=== PATIENT | female | born 1935 | race Caucasian/White ===

== ENCOUNTER 2017-01-09 05:04 | Inpatient (IN) | payer OTHER, MEDICARE ==
[~2017-01-09] VITALS: Ht 160 cm; Wt 75.4 kg
[~2017-01-09 05:04] MED LIST: ASPIRIN325 MG PO; ASPIRIN81 M2 PO; COUMADIN5 MG PO; LIPITOR20 MG PO; LOVENOX80 MG/0.8 SC; Monopril PO; NITROSTAT0.4 MG SL
[2017-01-09 05:46] LABS: CARBON DIOXIDE (BICARBONATE) 26.9 MEQ/L (20-31)
[2017-01-09 05:49] LABS: HEMATOCRIT 40.5 % (36.0-46.0); MCH 27.9 PG (29.0-34.0); MCHC 33.1 G/DL (30.0-36.0); MEAN PLAT.VOLUME 11.8 uM^3 (9.5-12.4); PLATELET COUNT 124 K/uL (156-360); RBC DIS.WIDTH-CV 13.6 % (11.8-14.6); RBC DIS.WIDTH-SD 42.3 % (39-53); WHITE BLOOD COUNT 13.5 K/uL (4.1-10.2)
[2017-01-09 05:57] LABS: CHLORIDE 102 mEq/L (99-109); MCV 84.4 FL (83-99); POTASSIUM 3.2 mEq/L (3.7-5.4); SODIUM 135 mEq/L (136-147)
[2017-01-09 05:58] LABS: GLUCOSE 174 mg/dL (70-99)
[2017-01-09 06:00] LABS: ANION GAP 11 MEQ/L (2-14)
[2017-01-09 06:02] LABS: GFR ESTIMATE (CALCULATED) 56 mL/min/
[2017-01-09 06:03] LABS: UREA NITROGEN (BUN) 17 mg/dL (9-23)
[2017-01-09 06:10] LABS: TROP-I INTERPRETATION NEGATIVE; TROPONIN-I 0.01 ng/mL (0.0-0.30)
[2017-01-09 08:11] LABS: ADD MIUA? YES; BILIRUBIN NEGATIVE; BLOOD MODERATE; COLOR YELLOW ((YELLOW)); GLUCOSE (STRIP) NEGATIVE; KETONES NEGATIVE; LEUKOCYTES TRACE; NITRITE NEGATIVE; PROTEIN (STRIP) NEGATIVE; SPECIFIC GRAVITY 1.008 (1.000-1.030); UROBILINOGEN 0.2 MG/DL (0.2-1.0)
[2017-01-09 08:15] LABS: BACTERIA RARE /HPF; EPITHELIAL CELLS 1+ /HPF; MUCUS TRACE /LPF; RED BLOOD CELLS 0-5 /HPF (0-5); UCUL ADDED? NO; WHITE BLOOD CELLS 0-5 /HPF (0-5)
[2017-01-09 09:25] VITALS: BP 169/72
[2017-01-09 12:55] LABS: TROP-I INTERPRETATION NEGATIVE; TROPONIN-I 0.04 ng/mL (0.0-0.30)
[2017-01-09] MEDS ORDERED: DUONEB 2.5-0.5 M3 ML AEROSOL (14:50)
[2017-01-09 16:18] VITALS: BP 142/63
[2017-01-09 21:18] LABS: TROP-I INTERPRETATION NEGATIVE; TROPONIN-I 0.04 ng/mL (0.0-0.30)
[2017-01-09 23:40] VITALS: BP 127/58
[2017-01-10 07:45] VITALS: BP 160/97
[2017-01-10 15:56] VITALS: BP 172/77
[2017-01-11 07:57] VITALS: BP 150/68
[2017-01-11 16:16] VITALS: BP 134/62
[2017-01-11 23:07] VITALS: BP 181/81
[2017-01-12 07:07] LABS: MCH 27.6 PG (29.0-34.0); MCHC 31.5 G/DL (30.0-36.0); MCV 87.6 FL (83-99); MEAN PLAT.VOLUME 11.7 uM^3 (9.5-12.4); RBC DIS.WIDTH-CV 14.3 % (11.8-14.6); RBC DIS.WIDTH-SD 46.2 % (39-53); RED BLOOD COUNT 4.45 M/uL (3.80-5.20); WHITE BLOOD COUNT 8.6 K/uL (4.1-10.2)
[2017-01-12 07:08] LABS: PLATELET COUNT 170 K/uL (156-360)
[2017-01-12 07:26] LABS: ALKALINE PHOSPHATASE 49 IU/L (3-129); ANION GAP 8 MEQ/L (2-14); CHLORIDE 107 MEQ/L (99-109); GFR ESTIMATE (CALCULATED) > 59 mL/min/; GLUCOSE 81 mg/dL (70-99); SAMPLE HEMOLYSIS CHECK 0; SAMPLE ICTERIC CHECK 0; SAMPLE LIPEMIA CHECK 0; SODIUM 141 MEQ/L (136-147); TOTAL BILIRUBIN 0.5 MG/DL (0.0-1.0); UREA NITROGEN (BUN) 14 mg/dL (9-23)
[2017-01-12 08:11] VITALS: BP 148/65
[2017-01-12 16:11] VITALS: BP 138/59
[2017-01-13 01:49] VITALS: BP 142/69
[2017-01-13 07:23] VITALS: BP 139/64
[2017-01-13 07:24] LABS: ALKALINE PHOSPHATASE 49 IU/L (3-129); ANION GAP 7 MEQ/L (2-14); CHLORIDE 106 MEQ/L (99-109); GFR ESTIMATE (CALCULATED) > 59 mL/min/; GLUCOSE 87 mg/dL (70-99); POTASSIUM 4.5 MEQ/L (3.7-5.4); SAMPLE HEMOLYSIS CHECK 2; SAMPLE ICTERIC CHECK 0; SAMPLE LIPEMIA CHECK 0; SODIUM 140 MEQ/L (136-147); UREA NITROGEN (BUN) 12 mg/dL (9-23)
[2017-01-13 07:25] LABS: TOTAL BILIRUBIN 0.8 MG/DL (0.0-1.0)
[2017-01-13] MEDS ORDERED: AUGMENTIN500 MG PO (08:18)
== END 2017-01-13 09:52 | disposition home or self-care (01) | DRG 194 ==
LOC: EME 05:04 → 5EAST 07:20 → EDOF 07:20 → ENRESERV 07:41 → EDOF 07:42 → ENRESERV 08:02 → 5EAST 09:02 → ENPENDDIS 01-13 → 5EAST 01-13 09:52
PROVIDERS: Emergency Medicine; Family Medicine; Internal Medicine; Physician Assistant
DX: J18.9 Pneumonia, unspecified organism (principal); J98.11 Atelectasis; E87.6 Hypokalemia; I10 Essential (primary) hypertension; R09.02 Hypoxemia; Z86.718 Personal history of other venous thrombosis and embolism; E78.5 Hyperlipidemia, unspecified
CPT/HCPCS: 71010; 80048; 80053; 81003; 82803; 83605; 83880; 84484; 85027; 87040; 93005; 94640; 94640 76; 94760; 94799; 99202; 99281; 99285; J0456; J0696; J1650; J2920; J3370; J7050

== ENCOUNTER 2017-10-09 23:25 | Inpatient (IN) | payer OTHER, MEDICARE ==
[~2017-10-09] VITALS: Ht 162.6 cm; Wt 72.0 kg
[~2017-10-09 23:25] MED LIST changes: +AUGMENTIN500 MG PO; +DUONEB 2.5-0.5 M3 ML AEROSOL
[2017-10-09 23:50] LABS: HEMATOCRIT 39.5 % (36.0-46.0); MCH 29.3 PG (29.0-34.0); MCHC 32.9 G/DL (30.0-36.0); RBC DIS.WIDTH-CV 13.4 % (11.8-14.6); RED BLOOD COUNT 4.44 M/uL (3.80-5.20); WHITE BLOOD COUNT 13.6 K/uL (4.1-10.2)
[2017-10-09 23:59] LABS: ALBUMIN 3.7 g/dL (3.2-4.8); CHLORIDE 103 mEq/L (99-109); POTASSIUM 4.1 mEq/L (3.7-5.4); SODIUM 137 mEq/L (136-147)
[2017-10-10 00:01] LABS: GLUCOSE 133 mg/dL (70-99)
[2017-10-10 00:03] LABS: TOTAL BILIRUBIN 0.6 mg/dL (0.0-1.0)
[2017-10-10 00:05] LABS: ALKALINE PHOSPHATASE 57 IU/L (3-129); CREATININE 0.7 mg/dL (0.6-1.3); GFR ESTIMATE (CALCULATED) > 59 mL/min/
[2017-10-10 00:06] LABS: UREA NITROGEN (BUN) 17 mg/dL (9-23)
[2017-10-10 00:07] LABS: AST (GOT) 23 IU/L (2-34)
[2017-10-10 00:08] LABS: ALT (GPT) 13 IU/L (3-49); LIPASE 12 U/L (1.0-51.0)
[2017-10-10 00:09] LABS: TROP-I INTERPRETATION NEGATIVE; TROPONIN-I < 0.01 ng/mL (0.0-0.30)
[2017-10-10 02:36] LABS: PLAT.SUFFICIENCY ADEQUATE; PLATELET COUNT 138 K/uL (156-360)
[2017-10-10 05:59] LABS: APPEARANCE CLEAR ((CLEAR)); BILIRUBIN NEGATIVE; BLOOD SMALL; COLOR COLORLESS ((YELLOW)); GLUCOSE (STRIP) 50; KETONES NEGATIVE; LEUKOCYTES NEGATIVE; NITRITE NEGATIVE; PROTEIN (STRIP) NEGATIVE; SPECIFIC GRAVITY 1.014 (1.000-1.030); UROBILINOGEN 0.2 MG/DL (0.2-1.0)
[2017-10-10 06:10] LABS: BACTERIA NONE SEEN /HPF; EPITHELIAL CELLS RARE /HPF; MUCUS NONE SEEN /LPF; RED BLOOD CELLS 0-5 /HPF (0-5); UCUL ADDED? NO; WHITE BLOOD CELLS 0-5 /HPF (0-5)
[2017-10-10 07:31] VITALS: BP 168/92
[2017-10-10] MEDS ORDERED: B-121000 MC2 PO (14:58)
[2017-10-10] MEDS ORDERED: LIPITOR20 MG PO (14:58)
[2017-10-10] MEDS ORDERED: LITE COAT ASPI325 M1 PO (14:59)
[2017-10-10 16:40] VITALS: BP 171/84
[2017-10-10 23:02] VITALS: BP 140/70
[2017-10-11 08:13] VITALS: BP 196/83
[2017-10-11 15:00] VITALS: BP 166/69
[2017-10-12 00:10] VITALS: BP 144/65
[2017-10-12 06:41] LABS: HEMATOCRIT 42.6 % (36.0-46.0); HEMOGLOBIN 13.7 G/DL (11.9-15.5); MCH 28.7 PG (29.0-34.0); MCHC 32.2 G/DL (30.0-36.0); MCV 89.3 FL (83-99); NRBC (%) 0.4 /100 WBC (0-0); RBC DIS.WIDTH-CV 13.2 % (11.8-14.6); RBC DIS.WIDTH-SD 43.4 % (39-53); RED BLOOD COUNT 4.77 M/uL (3.80-5.20); WHITE BLOOD COUNT 10.3 K/uL (4.1-10.2)
[2017-10-12 07:05] LABS: ALBUMIN 3.5 G/DL (3.2-4.8); ALKALINE PHOSPHATASE 50 IU/L (3-129); ALT (GPT) 10 IU/L (3-49); AST (GOT) 17 IU/L (2-34); CHLORIDE 103 MEQ/L (99-109); CREATININE 0.7 MG/DL (0.6-1.3); GFR ESTIMATE (CALCULATED) > 59 mL/min/; GLUCOSE 101 mg/dL (70-99); SODIUM 141 MEQ/L (136-147); TOTAL BILIRUBIN 0.8 MG/DL (0.0-1.0); TOTAL PROTEIN 5.6 G/DL (6.4-8.3); UREA NITROGEN (BUN) 15 mg/dL (9-23)
[2017-10-12 07:18] LABS: PLAT.SUFFICIENCY ADEQUATE; PLATELET COUNT 167 K/uL (156-360)
[2017-10-12 07:51] VITALS: BP 138/64
[2017-10-12 10:00] VITALS: BP 130/53
[2017-10-12 11:30] VITALS: BP 129/62
[2017-10-12 15:49] VITALS: BP 144/63
[2017-10-12 23:37] VITALS: BP 146/65
[2017-10-13 06:50] VITALS: BP 185/84
[2017-10-13] MEDS ORDERED: LOPRESSOR25 MG PO (08:23)
[2017-10-13 08:59] VITALS: BP 135/60
== END 2017-10-13 10:14 | disposition home or self-care (01) | DRG 392 ==
LOC: EME 23:25 → EDOF 10-10 05:50 → 5EAST 10-10 05:50 → ENRESERV 10-10 06:07 → 5EAST 10-10 07:25 → ENPENDDIS 10-13 → 5EAST 10-13 10:14
PROVIDERS: Emergency Medicine; Family Medicine
DX: K29.70 Gastritis, unspecified, without bleeding (principal); E86.0 Dehydration; K86.2 Cyst of pancreas; I10 Essential (primary) hypertension; G89.18 Other acute postprocedural pain; M25.511 Pain in right shoulder; E78.5 Hyperlipidemia, unspecified; Z86.718 Personal history of other venous thrombosis and embolism; Z47.89 Encounter for other orthopedic aftercare
CPT/HCPCS: 71045; 74177; 74183; 76705; 78226; 80053; 81003; 83690; 84484; 85027; 93005; 99281; 99284; A9537; J0696; J1650; J2405; J3010; J7030